=== PATIENT | female | born 1970 | race Caucasian/White ===

== ENCOUNTER 2017-10-13 06:15 | Day surgery (SDC) | payer OTHER ==
[2017-10-13] MEDS ORDERED: PROPOFOL 20 ML ×2 (07:24→09:22)
[2017-10-13] MEDS ORDERED: LIDOCAINE 2% (SDV) 5 ML INJ (07:24)
[2017-10-13] MEDS ORDERED: PHENYLephrine (100 MCG/ML) 5ML SYG (07:30)
[2017-10-13] MEDS ORDERED: GLYCOPYRROLATE 0.4 MG INJ (07:30)
== END 2017-10-13 12:28 | disposition home or self-care (01) ==
LOC: GIL 06:15
DX: Z12.11 Encounter for screening for malignant neoplasm of colon (principal); K64.8 Other hemorrhoids; E78.5 Hyperlipidemia, unspecified; E66.9 Obesity, unspecified; Z68.38 Body mass index [BMI] 38.0-38.9, adult
CPT/HCPCS: 45378